=== PATIENT | male | born 1955 ===

== ENCOUNTER 2017-11-15 07:05 | Emergency (ER) | payer MEDICAID ==
[~2017-11-15] VITALS: Ht 180.3 cm; Wt 72.6 kg
[~2017-11-15 07:05] MED LIST: NKM
--- NOTE | 2017-11-15 07:11 | Emergency Room Report ---
History of Present Illness General Chief Complaint: Abdominal Pain Source: Patient Present Illness HPI Patient presents with one week of abdominal pain. He states he is having difficulty urinating. He states that this morning he can barely pass any urine at all. He says it is painful in his lower abdomen. He's been able to move his bowels twice yesterday. Somewhat loose. He denies any blood. Denies any nausea or vomiting. These taken no medication for the pain. Rates pain 8/10, suprapubic, not radiating, fullness and pressure. No fevers, cough, NVD, rashes, SI or HI, headache. No chest pain, URI sy. Allergies: Coded Allergies: No Known Allergies (Unverified , 11/15/17) Patient History Past Medical History: see triage record Social History: Reports: smoking Social History Narrative "[facility] [place]" Reviewed Nursing Documentation: PMH: Agreed; PSxH: Agreed Nursing Documentation-PMH Past Medical History: No Stated History Review of Systems All Other Systems: negative except mentioned in HPI Physical Exam Vital Signs Date Time Temp Pulse Resp B/P (MAP) Pulse Ox O2 Delivery O2 Flow Rate FiO2 11/15/17 07:01 97.5 84 16 176/83 98 Room Air 97.5 Sp02 EP Interpretation: reviewed, normal General Appearance: well appearing, no apparent distress, GCS 15 Head: normocephalic Eyes: bilateral eye normal inspection, bilateral eye PERRL ENT: moist mucus membranes - Poor dentition Neck: supple Respiratory: lungs clear, normal breath sounds Cardiovascular #1: regular rate, rhythm Cardiovascular #2: 2+ radial (R) Gastrointestinal: normal inspection, normal bowel sounds, no mass, non- distended, no guarding, no rebound, tenderness - suprapubic Musculoskeletal: back normal, gait/station normal, normal range of motion Neurologic: alert, oriented x3, grossly normal Psychiatric: mood/affect normal, no suicidal/homicidal ideation Skin: normal inspection, warm/dry Medical Decision Making Diagnostic Impression: Primary Impression: BPH (benign prostatic hyperplasia) Qualified Codes: N40.1 - Benign prostatic hyperplasia with lower urinary tract symptoms; R39.16 - Straining to void Additional Impression: Renal insufficiency ER Course Patient presents with lower abdominal pain and difficulty urinating. Differential includes urinary retention, urinary tract infection, renal stone, diverticulitis amongst others. The patient will be evaluated with labs. A Adler will be placed. Also chest x-ray and abdominal film will be obtained. UA clear. No significant retention by volume once Adler placed - however, relief with the Adler. CXR clear. Abd film no obstruction. Labs with some elevation of BUN/creat. Also sodium minimally high. CK also slightly high. Improved with treatment. Told of need for follow up for PSA and urology evaluation. Patient stable for outpatient observation and treatment. Laboratory Tests Test 11/15/17 07:15 White Blood Count 6.0 K/UL (4.8-10.8) Red Blood Count 5.87 M/UL (4.70-6.10) Hemoglobin 16.2 G/DL (14.2-18.0) Hematocrit 52.2 % (42.0-52.0) H Mean Corpuscular Volume 89 FL (80-99) Mean Corpuscular Hemoglobin 27.7 PG (27.0-31.0) Mean Corpuscular Hemoglobin Concent 31.1 G/DL (32.0-36.0) L Red Cell Distribution Width 16.2 % (11.6-14.8) H Platelet Count 174 K/UL (150-450) Mean Platelet Volume 8.7 FL (6.5-10.1) Neutrophils (%) (Auto) 70.1 % (45.0-75.0) Lymphocytes (%) (Auto) 20.2 % (20.0-45.0) Monocytes (%) (Auto) 7.4 % (1.0-10.0) Eosinophils (%) (Auto) 1.1 % (0.0-3.0) Basophils (%) (Auto) 1.2 % (0.0-2.0) Urine Color Pale yellow Urine Appearance Clear Urine pH 5 (4.5-8.0) Urine Specific [place] 1.020 (1.005-1.035) Urine Protein 1+ (NEGATIVE) H Urine Glucose (UA) Negative (NEGATIVE) Urine Ketones Negative (NEGATIVE) Urine Occult Blood 2+ (NEGATIVE) H Urine Nitrite Negative (NEGATIVE) Urine Bilirubin Negative (NEGATIVE) Urine Urobilinogen Normal MG/DL (0.0-1.0) Urine Leukocyte Esterase 1+ (NEGATIVE) H Urine RBC 2-4 /HPF (0 - 0) H Urine WBC 0-2 /HPF (0 - 0) Urine Squamous Epithelial Cells Occasional /LPF Urine Bacteria Occasional /HPF (NONE) Sodium Level 146 MMOL/L (136-145) H Potassium Level 4.0 MMOL/L (3.5-5.1) Chloride Level 109 MMOL/L (98-107) H Carbon Dioxide Level 30 MMOL/L (21-32) Anion Gap 7 mmol/L (5-15) Blood Urea Nitrogen 25 mg/dL (7-18) H Creatinine 1.9 MG/DL (0.55-1.30) H Estimate Glomerular Filtration Rate 36.2 mL/min (>60) Glucose Level 146 MG/DL (74-106) H Calcium Level 9.6 MG/DL (8.5-10.1) Total Bilirubin 0.5 MG/DL (0.2-1.0) Aspartate Amino Transferase (AST) 30 U/L (15-37) Alanine Aminotransferase (ALT) 40 U/L (12-78) Alkaline Phosphatase 110 U/L (46-116) Total Creatine Kinase 835 U/L (26-308) H Troponin I 0.025 ng/mL (0.000-0.056) Total Protein 7.6 G/DL (6.4-8.2) Albumin 3.9 G/DL (3.4-5.0) Globulin 3.7 g/dL Albumin/Globulin Ratio 1.1 (1.0-2.7) Lipase 100 U/L (73-393) EKG Diagnostic Results Rate: normal Rhythm: NSR ST Segments: no acute changes Rhythm Strip Diag. Results EP Interpretation: yes Rhythm: NSR, no PVC's, no ectopy Chest X-Ray Diagnostic Results Chest X-Ray Diagnostic Results : Chest X-Ray Ordered: Yes # of Views/Limited/Complete: 1 View Indication: Other EP Interpretation: Yes Interpretation: no consolidation, no effusion, no pneumothorax Impression: No acute disease Electronically Signed by: Electronically signed by Tyler Mcginnis MD Other X-Ray Diagnostic Results Other X-Ray Diagnostic Results : X-Ray ordered: abd # of Views/Limited Vs Complete: 1 View Indication: Pain Interpretation: no fractures, nonspecific bowel gas, no sbo Impression: No acute disease Electronically Signed by: Electronically signed by Tyler Mcginnis MD Last Vital Signs Date Time Temp Pulse Resp B/P (MAP) Pulse Ox O2 Delivery O2 Flow Rate FiO2 11/15/17 11:49 98.3 71 16 124/71 100 Room Air 98.0 Status: improved Disposition: HOME, SELF-CARE Condition: Improved Scripts Acetaminophen (Tylenol) 325 Mg Tablet 650 MG ORAL Q6H PRN for Prn Pain/Headache/Temp > 101, #20 TAB 0 Refills Prov: Tyler Mcginnis M.D. 11/15/17 Tamsulosin Hcl (TAMSULOSIN HCL*) 0.4 Mg Cap.er.24h 0.4 MG ORAL BEDTIME, #30 CAP Prov: Tyler Mcginnis M.D. 11/15/17 Tyler Mcginnis M.D. November 15, 2017 07:11
[2017-11-15 07:15] VITALS: BP 172/111
[2017-11-15] MEDS ORDERED: Lidocaine HCl 2% Jelly 5ml Tube TOPIC ONE (07:15)
[2017-11-15 07:32] LABS: APPEARANCE,URINE CLEAR; BASOPHILS % (AUTO) 1.2 % (0.0-2.0); BILIRUBIN, URINE NEGATIVE (NEGATIVE); COLOR,URINE PALE YELLOW; EOSINOPHILS % (AUTO) 1.1 % (0.0-3.0); GLUCOSE, URINE (UA) NEGATIVE (NEGATIVE); HEMATOCRIT 52.2 % (42.0-52.0); HEMOGLOBIN 16.2 G/DL (14.2-18.0); KETONES,URINE NEGATIVE (NEGATIVE); LEUKOCYTE ESTERASE ,URINE 1+ (NEGATIVE); LYMPHOCYTES % (AUTO) 20.2 % (20.0-45.0); MEAN CORPUSCULAR VOLUME 89 FL (80-99); MONOCYTES % (AUTO) 7.4 % (1.0-10.0); NEUTROPHILS % (AUTO) 70.1 % (45.0-75.0); NITRITE,URINE NEGATIVE (NEGATIVE); PH,URINE 5 (4.5-8.0); PLATELET COUNT 174 K/UL (150-450); PROTEIN,URINE 1+ (NEGATIVE); RED BLOOD COUNT 5.87 M/UL (4.70-6.10); RED CELL DISTRIBUTION WIDTH 16.2 % (11.6-14.8); UROBILINOGEN,URINE NORMAL MG/DL (0.0-1.0)
[2017-11-15 07:35] VITALS: BP 132/94
[2017-11-15 07:41] LABS: ANION GAP 7 mmol/L (5-15); BLOOD UREA NITROGEN 25 mg/dL (7-18); CALCIUM 9.6 MG/DL (8.5-10.1); CARBON DIOXIDE 30 MMOL/L (21-32); CHLORIDE 109 MMOL/L (98-107); CREATININE 1.9 MG/DL (0.55-1.30); SODIUM 146 MMOL/L (136-145)
[2017-11-15 07:46] LABS: ALANINE AMINOTRANSFERASE 40 U/L (12-78); ALBUMIN 3.9 G/DL (3.4-5.0); ALBUMIN/GLOBULIN RATIO 1.1 (1.0-2.7); ALKALINE PHOSPHATASE 110 U/L (46-116); ASPARTATE AMINO TRANSFERASE 30 U/L (15-37); BILIRUBIN,TOTAL 0.5 MG/DL (0.2-1.0); CREATINE KINASE 835 U/L (26-308)
[2017-11-15] MEDS ORDERED: Tamsulosin 0.4mg cap ORAL STA (08:43)
[2017-11-15] MEDS ORDERED: TAMSULOSIN HCL0.4 MG ORAL (08:47)
[2017-11-15] MEDS ORDERED: TYLENOL325 MG ORAL (08:47)
[2017-11-15 09:30] VITALS: BP 130/90
[2017-11-15 11:49] VITALS: BP 124/71
--- NOTE | 2017-11-17 14:41 | Cardiology Report ---
APPROVED REPORT EKG Measurement Heart [id number] Normal sinus rhythm Possible Left atrial enlargement Left ventricular hypertrophy T wave abnormality, consider inferior ischemia Abnormal ECG
--- NOTE | 2017-11-18 16:18 | Diagnostic Imaging Report ---
INDICATION: Abdominal Pain COMPARISON: None FINDINGS: Single frontal view demonstrates a normal cardiomediastinal silhouette. The lungs are clear. No pleural effusions. The visualized osseous structures are within normal limits. IMPRESSION: No acute cardiopulmonary disease.
== END 2017-11-15 11:56 | disposition home or self-care (01) ==
LOC: EDBD 07:05 → EMR 10:11
DX: N40.0 Benign prostatic hyperplasia without lower urinary tract symptoms (principal); R39.198 Other difficulties with micturition; N28.9 Disorder of kidney and ureter, unspecified; R10.30 Lower abdominal pain, unspecified
CPT/HCPCS: 36415; 71045; 74018; 80053; 81003; 82550; 83690; 84484; 85025; 93005; 96374; 99284